=== PATIENT | female | born 1940 | race Caucasian/White ===

== ENCOUNTER 2022-01-04 11:00 | Outpatient (RCR) | payer MEDICARE, SELFPAY ==
[2021-10-10 12:02] VITALS: PULSE 90
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
== END 2022-01-04 19:30 | disposition home or self-care (01) ==
LOC: ANHCPREHAB 11:00
DX: Z95.2 Presence of prosthetic heart valve (principal)
CPT/HCPCS: 93798

== ENCOUNTER 2022-08-17 09:52 | Emergency (ER) | payer MEDICARE, SELFPAY ==
[2022-08-17 10:28] VITALS: BP 124/77; PULSE 95; RESP 16; TEMP 37.4; O2SAT 96
--- NOTE | 2022-08-17 10:45 | ED.URI ---
HPI - URI/Sore Throat General Chief Complaint: Upper Respiratory Infection Stated Complaint: jaw pain, headache, coughing, drainage Time Seen by Provider: 08/17/22 10:45 Source: patient and RN notes reviewed Mode of arrival: ambulatory Limitations: no limitations History of Present Illness HPI Narrative: 81-year-old female presents to the [facility] with complaints of sinus congestion, cough, runny nose, headache, postnasal drip, dry cough, generalized achiness. Currently wears home oxygen. Symptoms started Saturday. Related Data Home Medications Medication Instructions Recorded Confirmed apixaban 5 mg tablet (Eliquis) 5 mg PO BID 10/10/21 08/17/22 aspirin 81 mg tablet 81 mg PO DAILY 10/10/21 08/17/22 ezetimibe 10 mg tablet (Zetia) 10 mg PO DAILY 10/10/21 08/17/22 furosemide 20 mg tablet 20 mg PO DAILY 10/10/21 08/17/22 metformin 500 mg tablet,extended 500 mg PO BID 10/10/21 08/17/22 release 24hr multivitamin 1 tablet PO DAILY 10/10/21 08/17/22 nebivolol 5 mg tablet (Bystolic) 5 mg PO DAILY 10/10/21 08/17/22 spironolactone 25 mg tablet 25 mg PO DAILY 10/10/21 08/17/22 timolol maleate (PF) 0.5 % eye 1 drp EACH EYE BID 10/10/21 08/17/22 drops in a dropperette Allergies Allergy/AdvReac Type Severity Reaction Status Date / Time No Known Allergies Allergy Unverified 10/15/18 14:36 Review of Systems Review of Systems: All systems reviewed & are unremarkable except as noted in HPI and below Constitutional: Constitutional: Reports as per HPI, Denies chills and Denies fever(s) Eyes: Eyes: Reports no additional eye complaints ENT: Reports as per HPI and Reports nasal congestion Cardiovascular: Cardiovascular: Reports no additional cardiovascular complaints Respiratory: Respiratory: Reports no additional respiratory complaints Gastrointestinal: Gastrointestinal: Reports no additional gastrointestinal complaints Musculoskeletal: Musculoskeletal: Reports no additional musculoskeletal complaints Integumentary/Breasts: Skin/Breast: Reports system reviewed and no additional complaints, except as docu Neurologic: Reports system reviewed and no additional complaints, except as documented Psychiatric: Psychiatric: Reports no additional psychiatric complaints Allergic/Immunologic: Allergic/Immunologic: Reports no additional allergic/immunologic complaints PMFSH Past Medical History Medical History A-fib FH: mitral valve repair History of high blood pressure Surgical History Surgical History (Updated 08/17/22 @ 20:00 by Katarina Preston APRN) H/O: hysterectomy History of appendectomy History of tonsillectomy Family History Family History Grandparent Hypertension Cerebrovascular accident Cancer Mother Hypertension Emphysema lung Father Emphysema lung Social History Social History Smoking status: Never smoker Comments At the time of my signature, I reviewed and agree with the nursing past medical, surgical, social, and family history. There is no relevant family history pertinent to the patient complaint. Exam Const: General: no acute distress, alert, ill appearing acutely (Mild) and chronically and well nourished Nutritional Appearance: well nourished Orientation/consciousness: patient oriented x3 Limitations: no limitations HENMT: Head: normal to inspection Ears: external ears normal, TM's normal bilaterally and EAC's normal Face/Nose/Sinus: Normal external nose present and Nasal discharge present (Clear) Face and sinus: sinus tenderness frontal and maxillary Mouth: Yes Normal oral and palatal mucosa present, Yes lip normal and Yes moist mucous membranes Throat: posterior oropharynx normal and uvula midline Eyes: General: appearance normal, both eyes and all related structures Conjunctivae: conjunctivae normal Pupils: Eq
[2022-08-17 19:58] LABS: SARS-CoV-2 RNA PCR Positive
== END 2022-08-17 11:13 | disposition home or self-care (01) ==
PROVIDERS: Emergency Provider Nurse Practitioner
DX: U07.1 COVID-19 (principal); J32.9 Chronic sinusitis, unspecified; Z79.82 Long term (current) use of aspirin; I48.91 Unspecified atrial fibrillation; Z79.01 Long term (current) use of anticoagulants; I10 Essential (primary) hypertension
CPT/HCPCS: 99213; C9803; G0463; U0003; U0005